=== PATIENT | male | born 1970 | race Caucasian/White ===

== ENCOUNTER 2016-12-16 11:24 | Day surgery (SDC) | payer OTHER ==
[~2016-12-16] VITALS: Ht 157.5 cm; Wt 81.2 kg
[~2016-12-16 11:24] MED LIST: AMLO2.5T PO; ASP325T PO; ATEN100T88 PO; CLPD75T PO; FENO135C PO; FENO45CA PO; ISM30TCR PO; ISM60TCR PO; LOSA100T16 PO; LOSA1TAB15 PO; NF-ESOM40C PO; POTA10CA43 PO; ROSU5TAB PO
[2016-12-16] MEDS ORDERED: AMLODIPINE (11:37)
[2016-12-16] MEDS ORDERED: ASPI-586 PO (11:37)
[2016-12-16] MEDS ORDERED: fentaNYL INJECTION 100 MCG/2 ML AMP IVP STA (11:56)
[2016-12-16] MEDS ORDERED: NS IV 1000 ML 1,000 ML IV ONE (11:56)
--- NOTE | 2016-12-16 12:01 | ED GI ---
General Chief Complaint: Abdominal/GI Problems Stated Complaint: UNABLE TO SWALLOW/UPPER ABD PAIN Nursing Triage Note: PT REPORTS HE HAS A HX OF A HIATAL HERNIA. AT APPROX 1900 LAST NIGHT HE WAS EATING PORK LOIN ET JALAPENOS ET HE CHOKED. HE HAS BEEN UNABLE TO SWALLOW ANYTHING SINCE THEN. Sepsis Screen: No Definite Risk Source of Information: Patient, Spouse Exam Limitations: No Limitations History of Present Illness Time Seen By Provider: 11:40 Initial Comments 46 yo male patient presents to the ED with c/o food stuck in his esophagus. Patient states he was eating pork and jalapenos last night when he felt the food stick in the lower esophagus. States he is usually able to get the food to pass through within an 1-2 hours. On this occasion he has been unable to do this. Unable to swallow his own secretions. Incident occurred last night at 1900. Has not had anything to eat or drink today. Timing/Duration: 12-24 Hours, Constant Severity/Quality: Sharp Location: Epigastric Radiation: Other (radiates up the esophagus) Activities at Onset: Other (eating) Modifying Factors: Worsens With Eating Allergies and Home Medications Allergies Coded Allergies: Penicillins (Verified Allergy, Unknown, 01/17/11) Home Medications (Reported) Aspirin 81 Mg Tablet.dr 81 MG PO DAILY (Reported) Atenolol 100 Mg Tablet 100 MG PO DAILY (Reported) Esomeprazole Mag Trihydrate 40 Mg Capsule.dr #30 40 MG PO DAILY (Reported) Fenofibrate 135 Mg Capsule.dr 135 MG PO DAILY (Reported) Losartan/Hydrochlorothiazide 1 Tab Tablet 1 TAB PO DAILY (Reported) Potassium Chloride 10 Meq Capsule.sa 10 MEQ PO DAILY (Reported) Review of Systems Constitutional: No diaphoresis, No fever, No malaise Respiratory: Denies Cough, Denies Shortness of Air Cardiovascular: No Symptoms Reported Gastrointestinal: See HPIDenies Abdomen Distended, Abdominal Pain ( epigastric pain)Denies Constipated, Denies Diarrhea, Difficulty SwallowingDenies Nausea, Poor Appetite Poor Fluid IntakeDenies Vomiting Genitourinary: No Symptoms Reported Musculoskeletal: no symptoms reported Skin: no symptoms reported Psychiatric/Neurological: No Symptoms Reported All Other Systems Reviewed Negative Unless Noted: Yes (Negative excepted noted.) Past Bojkxho-Dxqacd-Qecpfy Hx Patient Social History Alcohol Use: Denies Use Recreational Drug Use: No Smoking Status: Current Everyday Smoker Type Used: Cigarettes Recent Foreign Travel: No Contact w/Someone Who Travel: No Recent Infectious Disease Expo: No Recent Hopitalizations: No Surgeries HX Surgeries: Yes (HEART CATH X 3) Surgeries: Coronary Stent Respiratory Hx Respiratory Disorders: No Cardiovascular Hx Cardiac Disorders: Yes Cardiac Disorders: Heart Attack, High Cholesterol, Hypertension Neurological Hx Neurological Disorders: No Reproductive System Hx Reproductive Disorders: No Genitourinary Hx Genitourinary Disorders: No Gastrointestinal Hx Gastrointestinal Disorders: Yes Gastrointestinal Disorders: Hiatal Hernia Endocrine Hx Endocrine Disorders: No HEENT HX ENT Disorders: No Psychosocial Hx Psychiatric Problems: No Blood Transfusions Hx Blood Disorders: No Reviewed Nursing Assessment Reviewed/Agree w Nursing PMH: Yes Family Medical History Significant Family History: No Pertinent Family Hx Physical Exam Vital Signs VS - Last 72 Hours, by Label 12/16/16 11:30 Temp 97.9 Pulse 88 Resp 16 B/P 170/141 Capillary Refill : Less Than 3 Seconds General Appearance: WD/WN no apparent distress Respiratory: lungs clear normal breath sounds no respiratory distress Cardiovascular: regular rate, rhythm no murmur Gastrointestinal: normal bowel sounds soft no organomegalyNo distended, guarding (epigastric)No rebound, tenderness (epigastric) Extremities: normal inspection normal capillary refill Neurologic/Psychiatric: alert normal mood/affect oriented x 3 Skin: normal color warm/dry Progress/Results/Core Measures Results/Orders Lab Results Laboratory Tests Test 12/16/16 11:50 Range/Units Alanine Aminotransferase (ALT/SGPT) 46 0-55 U/L Albumin 4.6 H 3.2-4.5 G/DL Alkaline Phosphatase 68 40-136 U/L Anion Gap 15 H 5-14 MMOL/L Aspartate Amino Transf (AST/SGOT) 34 5-34 U/L BUN/Creatinine Ratio 23 Basophils # (Auto) 0.0 0.0-0.1 10^3/uL Basophils (%) (Auto) 0 0-10 % Blood Urea Nitrogen 19 H 7-18 MG/DL Calcium Level 9.3 8.5-10.1 MG/DL Carbon Dioxide Level 22 21-32 MMOL/L Chloride Level 104 98-107 MMOL/L Creatinine 0.84 0.60-1.30 MG/DL Eosinophils # (Auto) 0.1 0.0-0.3 10^3/uL Eosinophils (%) (Auto) 1 0-10 % Estimat Glomerular Filtration Rate > 60 Glucose Level 125 H 70-105 MG/DL Hematocrit 43 40-54 % Hemoglobin 15.5 13.3-17.7 G/DL Lipase 22 8-78 U/L Lymphocytes # (Auto) 2.0 1.0-4.0 X 10^3 Lymphocytes (%) (Auto) 24 12-44 % Mean Corpuscular Hemoglobin 29 25-34 PG Mean Corpuscular Hemoglobin Concent 36 32-36 G/DL Mean Corpuscular Volume 81 80-99 FL Mean Platelet Volume 10.5 H 7.4-10.4 FL Monocytes # (Auto) 0.7 0.0-1.0 X 10^3 Monocytes (%) (Auto) 8 0-12 % Neutrophils # (Auto) 5.5 1.8-7.8 X 10^3 Neutrophils (%) (Auto) 67 42-75 % Platelet Count 279 130-400 10^3/uL Potassium Level 4.2 3.6-5.0 MMOL/L Red Blood Count 5.33 4.35-5.85 10^6/uL Red Cell Distribution Width 14.5 10.0-14.5 % Sodium Level 141 135-145 MMOL/L Total Bilirubin 0.5 0.1-1.0 MG/DL Total Protein 8.2 6.4-8.2 G/DL White Blood Count 8.2 4.3-11.0 10^3/uL My Orders Orders-LETI NOLAN Saline Lock/Iv-Start (12/16/16 11:38) Cbc With Automated Diff (12/16/16 11:38) Comprehensive Metabolic Panel (12/16/16 11:38) Lipase (12/16/16 11:38) Chest Pa/Lat (2 View) (12/16/16 11:38) Fentanyl Injection (Sublimaze Injection (12/16/16 11:56) Ns Iv 1000 Ml (Sodium Chloride 0.9%) (12/16/16 11:56) Morphine Injection (Morphine Injection (12/16/16 12:46) Medications Given in ED Current Medications Medications Dose Ordered Sig/Ann Marie Route Start Time Stop Time Status Last Admin Dose Admin Sodium Chloride 1,000 ml @ 0 mls/hr Q0M ONCE IV 12/16/16 11:56 12/16/16 11:57 DC 12/16/16 12:11 1,000 MLS/HR Vital Signs/I&O Vital Sign - Last 12Hours 12/16/16 11:30 Temp 97.9 Pulse 88 Resp 16 B/P 170/141 Blood Pressure Mean: 151 Diagnostic Imaging Diagonstic Imaging: Xray Plain Films/CT/US/NM/MRI: chest Comments FINDINGS: The lungs are well-aerated. There are no infiltrates or masses. The heart is not enlarged. No hilar adenopathy. No pulmonary edema. No evidence of retrocardiac mass. IMPRESSION: Normal PA and lateral chest. Dictated on workstation # [id number] Reviewed: Reviewed by Me (radiology report reviewed by me) Departure Communication Time/Spoke to Admitting Phy: 12:[address] Sanchez accepts patient as an admit to endoscopy for EGD with possible foreign body removal. Progress Notes laboratory findings, diagnostic study findings, and plan for endoscopy admission discussed with the patient. Patient voices understanding and agrees with the treatment plan. Impression Impression: Primary Impression: Distal esophageal obstruction due to foreign body Disposition: ADMITTED INPATIENT Condition: Stable Decision to Admit Reason: Admit from ER (General) Decision to Admit/Date: Dec 16, 2016 Time/Decision to Admit Time: 12:44 Departure-Patient Inst. Referrals: [facility] (PCP/Family) Primary Care Physician LETI NOLAN Dec 16, 2016 12:01
[2016-12-16 12:02] LABS: BASOPHILS % (AUTO) 0 % (0-10); EOSINOPHILS # (AUTO) 0.1 10^3/uL (0.0-0.3); EOSINOPHILS % (AUTO) 1 % (0-10); LYMPHOCYTES % (AUTO) 24 % (12-44); MEAN CORPUSCULAR HEMOGLOBIN 29 PG (25-34); MEAN CORPUSCULAR HGB CONC 36 G/DL (32-36); MEAN CORPUSCULAR VOLUME 81 FL (80-99); MEAN PLATELET VOLUME 10.5 FL (7.4-10.4); MONOCYTES # (AUTO) 0.7 X 10^3 (0.0-1.0); MONOCYTES % (AUTO) 8 % (0-12); NEUTROPHILS # (AUTO) 5.5 X 10^3 (1.8-7.8); NEUTROPHILS % (AUTO) 67 % (42-75); PLATELET COUNT 279 10^3/uL (130-400); RED BLOOD COUNT 5.33 10^6/uL (4.35-5.85); RED CELL DISTRIBUTION WIDTH 14.5 % (10.0-14.5); WHITE BLOOD COUNT 8.2 10^3/uL (4.3-11.0)
--- NOTE | 2016-12-16 12:21 | Diagnostic Imaging Report ---
INDICATION: History of hiatal hernia with difficulty swallowing. Comparison with 01/17/2011. FINDINGS: The lungs are well-aerated. There are no infiltrates or masses. The heart is not enlarged. No hilar adenopathy. No pulmonary edema. No evidence of retrocardiac mass. IMPRESSION: Normal PA and lateral chest. Dictated by: Dictated on workstation # [id number]
[2016-12-16 12:25] LABS: ALANINE AMINOTRANSFERASE 46 U/L (0-55); ALBUMIN 4.6 G/DL (3.2-4.5); ANION GAP 15 MMOL/L (5-14); ASPARTATE AMINO TRANSFERASE 34 U/L (5-34); BILIRUBIN,TOTAL 0.5 MG/DL (0.1-1.0); BLOOD UREA NITROGEN 19 MG/DL (7-18); BUN/CREATININE RATIO 23; CALCIUM 9.3 MG/DL (8.5-10.1); CARBON DIOXIDE 22 MMOL/L (21-32); CHLORIDE 104 MMOL/L (98-107); CREATININE SERUM 0.84 MG/DL (0.60-1.30); GFR ESTIMATED > 60; GLUCOSE 125 MG/DL (70-105); LIPASE 22 U/L (8-78); POTASSIUM 4.2 MMOL/L (3.6-5.0); SODIUM 141 MMOL/L (135-145); TOTAL PROTEIN 8.2 G/DL (6.4-8.2)
[2016-12-16] MEDS ORDERED: morphine INJ 10 MG/ML 1ML (SYR OR VIAL) IVP STA (12:46)
[2016-12-16 13:10] VITALS: BP 153/113
[2016-12-16] MEDS ORDERED: NALOXONE 0.4 MG/ML 1 ML (NARCAN) VIAL IVP PRN (13:15)
[2016-12-16] MEDS ORDERED: FLUMAZENIL (ROMAZICON) 0.1 MG/ML 5 ML VIAL INJ PRN (13:15)
[2016-12-16] MEDS ORDERED: NS IV 500 ML 500 ML IV ONE (13:15)
--- NOTE | 2016-12-16 14:08 | Conscious Sedation/ASA ---
Conscious Sedation Pre-Proced Time Reviewed: 13:30 ASA Class: 2 Airway Mallampati Classification: ([place] appropriate class) I. II. III, IV Lungs Heart ASA score ASA 1: a normal healthy patient ASA 2: a patient with a mild systemic disease (mid diabetes, controlled hypertension, obesity ASA 3: a patient with a severe systemic disease that limits activity (angina , COPD, prior Myocardial infarction) ASA 4: a patient with an incapacitating disease that is a constant threat to life (CHF, renal failure) ASA 5: a moribund patient not expected to survive 24 hrs. (ruptured aneurysm) ASA 6: a declared brain patient whose organs are being harvested. For emergent operations, add the letter E after the classification Grade 3 Sedation Plan: Analgesia, Amnesia, Plan communicated to team members, Discussed options with patient/fam, Discussed risks with patient/fam Note The patient is an appropriate candidate to undergo the planned procedure, sedation, and anesthesia. The patient immediately re-assessed prior to indication. PATIENCE SARGENT MD Dec 16, 2016 2:08 pm
--- NOTE | 2016-12-16 14:09 | Progress Note-Pre Operative ---
Pre-Operative Progress Note H&P Reviewed The H&P was reviewed, patient examined and no changes noted. Date H&P Reviewed: Dec 16, 2016 Time H&P Reviewed: 13:30 Pre-Operative Diagnosis: dysphagia with esophageal foreign body PATIENCE SARGENT MD Dec 16, 2016 2:09 pm
[2016-12-16] MEDS ORDERED: MIDAZOLAM 2 MG/2 ML (VERSED) VIAL ONE ×4 (14:29→14:30)
[2016-12-16] MEDS ORDERED: fentaNYL INJECTION 100 MCG/2 ML AMP ONE ×2 (14:29)
[2016-12-16] MEDS ORDERED: LIDOCAINE JELLY 2% (XYLOCAINE) 5 ML TUBE ONE (14:29)
[2016-12-16] MEDS: HURRICAINE EXT TUBE (BENZOCAINE) XX PRN ×2 (14:30→14:35)
[2016-12-16] MEDS ORDERED: HURRICAINE EXT TUBE (BENZOCAINE) ONE (14:30)
[2016-12-16] MEDS: fentaNYL INJECTION 100 MCG/2 ML AMP IVP PRN ×3 (14:30→15:03)
[2016-12-16] MEDS ORDERED: NS IV 500 ML 500 ML ONE (14:47)
[2016-12-16] MEDS: MIDAZOLAM 2 MG/2 ML (VERSED) VIAL IVP PRN ×4 (14:55→15:02)
[2016-12-16] MEDS ORDERED: NS IV 500 ML 500 ML IV SCH (15:03)
--- NOTE | 2016-12-16 15:16 | Progress Note-Post Operative ---
Post-Operative Progess Note Pre-Operative Diagnosis dysphagia with esophageal foreign body Post-Operative Diagnosis distal esophageal foreign body, severe reflux esophagitis(class C-D), distal esophageal stricture, small HH(2cm), moderate gastritis Post-Op Procedure Note Date of Procedure: Dec 16, 2016 Name of Procedure: EGD with bx and dilatation. Anesthesia Type CS Estimated blood loss (mL): minimal Specimen(s) collected GE jxn, antrum PATIENCE SARGENT MD Dec 16, 2016 15:16
[2016-12-16] MEDS ORDERED: SUCR1TAB36 PO (15:17)
[2016-12-16] MEDS ORDERED: PANT40TA2 PO (15:17)
--- NOTE | 2016-12-16 15:18 | Discharge Inst-Surgical ---
D/C Lap Instructions-KIDO New, Converted, or Re-Newed RX: RX on Chart Follow Up PRN Activity as tolerated clear liquid diet next 2 days then advance as tolerated Avoid Alcohol, Caffeine, Spicy [place] and Acid foods. Drink 64 fluid oz or more of fluids per day. Symptoms to Report: Fever over 101 degree F, Nausea/Vomiting If any problems/questions: Contact your physician or go to Emergency Room PATIENCE SARGENT MD Dec 16, 2016 15:18
[2016-12-16 15:35] VITALS: BP 160/99
[2016-12-16 15:58] VITALS: BP 153/113
[2016-12-16 16:12] VITALS: BP 133/90
[2016-12-16 16:13] VITALS: BP 133/90
--- NOTE | 2016-12-17 10:41 | HISTORY AND PHYSICAL ---
DATE OF ADMISSION: 12/16/2016 ATTENDING PRIMARY CARE PHYSICIAN: [facility]. Mr. Kevin Hansen is a 46-year-old male who reports that he was grilling port and he reports after taking in a food bolus noticed sudden onset of substernal pressure sensation. He tried to take in more food as well as liquids; however, this worsened it and he did have several episodes of regurgitation. He then reports overnight he was unable to swallow saliva. He does have a history of gastroesophageal reflux disease and is currently taking a Nexium. PAST MEDICAL HISTORY: 1. Hypertension. 2. Hypercholesterolemia. 3. History of myocardial infarction. 4. Gastroesophageal reflux disease. 5. Hypertriglyceridemia. PAST SURGERIES: Cardiac catheterization and stent placement x3. ALLERGIES: PENICILLIN MEDICATIONS: 1. Aspirin 81 mg daily. 2. Atenolol 100 mg daily. 3. Nexium 40 mg daily. 4. Fenofibrate 135 mg daily. 5. Losartan/hydrochlorothiazide daily. 6. Potassium 10 mEq daily. SOCIAL HISTORY: Positive smoke 20 pack-years. Social alcohol. FAMILY HISTORY: Noncontributory. VITAL SIGNS: Stable. Temperature 97.9, blood pressure 170/141, pulse 80, respirations 16. REVIEW OF SYSTEMS: This is a well-nourished male, guarded secondary to dysphasia. He is not experiencing shortness of breath or difficulty breathing. No chest pain, palpitations, diaphoresis. Intermittent episodes of globus sensation and inability to swallow, as well as substernal pressure sensation, as well as regurgitation. No hematemesis, no coffee-ground emesis. No diarrhea, constipation. No red blood per rectum. No dark tarry stools. No fever, chills, no recent inadvertent weight loss. PHYSICAL EXAMINATION: CHEST: Clear. HEART: Regular. EXTREMITIES: No lower extremity edema. Negative Homans sign. HEENT: No scleral icterus. No cervical lymphadenopathy. ABDOMEN: Soft, nondistended. There is mild discomfort in the epigastric region upon deep palpation. ASSESSMENT AND PLAN: 46-year-old male with history of gastroesophageal reflux disease and dysphagia most likely secondary to esophageal foreign body. We will proceed with EGD, biopsies, as well as removal of foreign body. Job ID: [id number] Dictated Date: 12/16/2016 14:16:52 Mercerizing Range Feeder Date: 12/17/2016 10:35:13/archana
--- NOTE | 2016-12-18 14:23 | OPERATIVE REPORT ---
PROCEDURE PHYSICIAN: PATIENCE SARGENT DATE OF PROCEDURE: 12/16/2016 ATTENDING FULFILLMENT MAIL CLERK: [facility]. PREOPERATIVE DIAGNOSIS: Esophageal foreign body and dysphagia. POSTOPERATIVE DIAGNOSES: 1. Esophageal foreign body distal esophageal stricture. 2. Severe reflux esophagitis, class C to D. 3. Small hiatal hernia, approximately 2 cm in size. 4. Moderate gastritis. PROCEDURE: EGD and removal of a foreign body, biopsy and dilatation. SURGEON: Dr. Sargent. ANESTHESIA: Conscious sedation. ESTIMATED BLOOD LOSS: Minimal. FINDINGS: 1. Distal esophageal foreign body which appeared to be a pork from the night previous. There was also a severe reflux esophagitis, between class C and D. 2. Distal esophageal stricture. 3. Hiatal hernia, approximately 2 cm in size. 4. Moderate gastritis. 5. There were no gastric duodenal ulcers. DISPOSITION: The patient tolerated the procedure well. BRIEF HISTORY: Mr. Kevin Hansen is a 46-year-old male who states that he was eating grilled pork last night and felt a sudden onset of substernal pressure sensation. He tried to eat more and drink liquids; however, this would exacerbate his symptoms and he would have episodes of regurgitation. He states that all night he was unable to swallow his own saliva. He reports that he has had milder episodes of this before in the past that would pass on its own after a few hours. He does have a history of gastroesophageal reflux disease. PROCEDURE: The patient was brought to the endoscopy suite, laid in the left lateral decubitus position. After adequate IV pain and sedative medications and conscious sedation anesthesia, a mouth piece was applied. The endoscope was placed in the mouth, visualizing the pharynx and hypopharyngeal region. Vocal cords, epiglottis and vallecula identified and appeared to be normal. The endoscope was then gently intubated into the esophageal opening and the esophagus insufflated. The endoscope was then advanced through the first, second, and 3rd portions esophagus at the distal esophagus was a food bolus which appeared to be pork. This was pushed through without any resistance into the stomach. A significant severe reflux esophagitis, between class C and D was identified with a distal esophageal stricture as well. Biopsy was taken with forceps of visualization of good hemostasis. The endoscope was then gently advanced to the stomach and endoscope retroflexed visualizing a small hiatal hernia, approximately 2 cm in size. There was a moderate severity gastritis. A biopsy was taken of the stomach antrum, with visualization of good hemostasis. The endoscope was then advanced through the pylorus and first and second portions of duodenum which appeared normal. We then decided to proceed with dilatation esophageal stricture. A CRE fixed guidewire balloon was then placed under direct visualization the stomach and pulled back to the area of the stricture. The balloon was then dilated to 3 atmospheres of pressure or 18 mm with mild resistance. We then proceeded to 4.5 atmospheres of pressure or 19 mm with moderate resistance. The patient did show discomfort consistent with a successful dilatation. We left the balloon in place for approximately 60 seconds. The balloon was then desufflated and removed. Good hemostasis was observed. The endoscope was slowly withdrawn while taking a second look and suctioning residual air with no additional findings. The patient tolerated procedure well. For his reflux esophagitis, hiatal hernia, stricture, as well as gastritis, we will recommend the necessary lifestyle and diet accommodation including smoking cessation as well as avoidance of caffeinated beverages, spicy, greasy and acidic foods. He also needs to take something stronger than Nexium [id number] and we will start him on Protonix 40 mg daily, as well as Carafate 1 gram q.i.d. for the next 2 weeks then on a p.r.n. basis. We will also recommend a clear liquid diet for the next 48 hours and slowly advance as tolerated. Job ID: [id number] Dictated Date: 12/16/2016 15:12:59 Director [employer] Date: 12/18/2016 14:14:18 / archana
== END 2016-12-16 16:19 | disposition home or self-care (01) ==
LOC: EDUNIT# 11:24 → ER 11:26 → SDC 12:51
PROVIDERS: ATTEND Surgery Pediatric Surgery
DX: T18.128A Food in esophagus causing other injury, initial encounter (principal); K22.2 Esophageal obstruction; K21.0 Gastro-esophageal reflux disease with esophagitis; K44.9 Diaphragmatic hernia without obstruction or gangrene; K29.70 Gastritis, unspecified, without bleeding
CPT/HCPCS: 36415; 71020; 80053; 83690; 85025; 88305; 96361; 96374

== ENCOUNTER 2017-07-04 09:10 | Day surgery (SDC) | payer OTHER ==
[2017-07-04] VITALS (10 sets, daily range): BP systolic 116–133; BP diastolic 62–94
[~2017-07-04] VITALS: Ht 157.5 cm; Wt 81.6 kg
[~2017-07-04 09:10] MED LIST changes: +AMLODIPINE; +ASPI-586 PO; +PANT40TA2 PO; +SUCR1TAB36 PO
[2017-07-04] MEDS ORDERED: HEParin (CATH LAB) 2,000 ML IV ONE (09:13)
[2017-07-04] MEDS ORDERED: NS IV 1000 ML 1,000 ML ONE (09:13)
--- OUTSIDE RECORDS SUMMARY | 2017-07-04 09:17 | XMS REPORT ---
Author Author NICOLE PEOPLES Organization [employer] Address Unknown Phone Unavailable Care Team Providers Care Brick Tender Name Role Phone NICOLE PEOPLES CP Unavailable Allergies No Known Allergies Problems Problem Type Condition Code Onset Dates Condition Status Problem Pulpitis 522.0 Active Problem Acute tonsillitis 463 Active Problem Allergic rhinitis due to pollen 477.0 Active Problem Hyperlipemia 272.4 Active Problem Unspecified follow-up examination V67.9 Active Problem CAD (coronary artery disease) 414.00 Active Problem Encounter for long-term (current) use of other medications V58.69 Active Problem Acute pharyngitis 462 Active Problem Depressive disorder, not elsewhere classified 311 Active Problem Periapical abscess without sinus 522.5 Active Problem Unspecified disorder of the teeth and supporting structures 525.9 Active Problem Unspecified myalgia and myositis 729.1 Active Problem Actinic keratosis 702.0 Active Problem Unspecified hypertrophic and atrophic condition of skin 701.9 Active Medications Medication Code System Code Instructions Start Date End Date Status Dosage Atenolol [facility] [address]-65 100 MG Orally Once a day December 29, 2014 1 tablet Results No Known Results Summary Purpose [employer]Clinical[employer] Submission
--- OUTSIDE RECORDS SUMMARY | 2017-07-04 09:17 | XMS REPORT ---
Author Author NICOLE PEOPLES Organization [employer] Address Unknown Phone Unavailable Care Team Providers Care [facility] Manager Name Role Phone NICOLE PEOPLES CP Unavailable Allergies No Known Allergies Problems Problem Type Condition ICD-9 Code Onset Dates Condition Status Problem Pulpitis [...] Instructions Start Date End Date Status Dosage Langzaar [facility] [address]-60 100-25 MG Orally Once a day December 29, 2014 1 tablet Results No Known Results Summary Purpose [employer]Clinical[employer] Submission
--- OUTSIDE RECORDS SUMMARY | 2017-07-04 09:17 | XMS REPORT ---
Author Author FRANCOISE NUNEZ [employer] Address Unknown Phone Unavailable Care Team Providers Care Field Cane Scale Clerk Name Role Phone FRANCOISE NUNEZ Unavailable Allergies No Known Allergies Problems Problem Type Condition Code Onset Dates Condition Status Problem Hyperlipidemia, unspecified E78.5 Active Problem Nicotine dependence, cigarettes, uncomplicated F17.210 Active Problem Atherosclerotic heart disease of [place] coronary artery without angina pectoris I25.10 Active Medications Medication Code System Code Instructions Start Date End Date Status Dosage Langzapedro [facility] [address]-63 100-25 MG Orally Once a day December 29, 2014 1 tablet Results No Known Results Summary Purpose [employer]ClinicalWorks Submission
--- OUTSIDE RECORDS SUMMARY | 2017-07-04 09:17 | XMS REPORT ---
Author Author JHONNY RIVERA [employer] Address Unknown Phone Unavailable Care Team Providers Care Over Hauler Helper Name Role Phone JHONNY RIVERA CP Unavailable Allergies, Adverse Reactions, Alerts Substance Reaction Event Type Penicillin G Sodium Info Not Available Drug Allergy Problems Problem Type Condition Code Onset Dates Condition Status Problem Hyperlipidemia, unspecified E78.5 Active Problem Nicotine dependence, cigarettes, uncomplicated F17.210 Active Problem Atherosclerotic heart disease of [place] coronary artery without angina pectoris I25.10 Active Assessment Essential hypertension I10 Active Assessment Hyperlipidemia, unspecified hyperlipidemia type E78.5 Active Assessment Aortic aneurysm without rupture, unspecified portion of aorta I71.9 Active Assessment Coronary artery disease involving [place] heart without angina pectoris, unspecified vessel or lesion type I25.10 Active Medications Medication Code System Code Instructions Start Date End Date Status Dosage Flonase [facility] [address]-00 50 MCG/ACT Nasally Once a day Jul 01, 2015 1 spray in each nostril Norvasc [facility] [address]-40 5 MG Orally 2 times a day December 29, 2014 take 1 tablet Niacin [facility] [address]-39 500 MG Orally Once a day December 29, 2014 1 Tablet by Oral route 2 times per day Potassium NDC 0 595mg Orally Once a day 1 tablet IBU NDC 0 800 MG Orally Three times a day April 01, 2015 1 tablet Hyzaar [facility] 83623730121 100-25 MG Orally Once a day 1 tablet Nexium [facility] [address]-19 20 mg January 13, 2015 1 capsule by Oral route 1 time per day Aspirin [facility] [address]-95 81 mg Jul 22, 2013 chew 1 tablet (81 mg ) by oral route once daily Gemfibrozil [facility] [address]-78 600 MG Orally Twice a day December 29, 2014 1 tablet Atenolol [facility] 07422399423 100 MG Orally Once a day 1 tablet Procedures Procedure Coding System Code Date Office Visit, Est Pt., Level 4 CPT-4 74918 Jun 17, 2016 Vital Signs Date/Time: Jun 17, 2016 Cardiac Monitoring Heart Rate 72 bpm Weight 186 lbs Height 62 in BMI 34.02 Index Blood Pressure Diastolic 88 mmHg Blood Pressure Systolic 142 mmHg Results No Known Results Summary Purpose eClinicalWorks Submission
--- OUTSIDE RECORDS SUMMARY | 2017-07-04 09:18 | XMS REPORT ---
Author Author FRANCOISE NUNEZ [employer] Address Unknown Phone Unavailable Care Team Providers Care Province Archivist Name Role Phone FRANCOISE NUNEZ Unavailable Allergies, Adverse Reactions, Alerts Substance Reaction Event Type Penicillin G Sodium Info Not Available Drug Allergy Problems Problem Type Condition Code Onset Dates Condition Status Problem Hyperlipidemia, unspecified E78.5 Active Problem Nicotine dependence, cigarettes, uncomplicated F17.210 Active Problem Atherosclerotic heart disease of [place] coronary artery without angina pectoris I25.10 Active Assessment Hyperlipidemia, unspecified E78.5 Active Assessment Essential hypertension I10 Active Medications Medication Code System Code Instructions Start Date End Date Status Dosage Nexium [facility] [address]-60 40 mg January 13, 2015 1 capsule by Oral route 1 time per day Aspirin [facility] [address]-80 81 mg Jul 22, 2013 chew 1 tablet (81 mg ) by oral route once daily Norvasc [facility] [address]-48 5 MG Orally 2 times a day December 29, 2014 take 1 tablet Potassium NDC 0 595mg Orally Once a day 1 tablet Gemfibrozil [facility] [address]-38 600 MG Orally Twice a day December 29, 2014 1 tablet Atenolol [facility] [address]-79 100 MG Orally Once a day December 29, 2014 1 tablet Hyzaar [facility] 25808433912 100-25 MG Orally Once a day 1 tablet Niacin [facility] [address]-18 500 MG Orally Once a day December 29, 2014 1 Tablet by Oral route 2 times per day Procedures Procedure Coding System Code Date Office Visit, Est Pt., Level 3 CPT-4 40001 May 09, 2016 Vital Signs Date/Time: May 09, 2016 Cardiac Monitoring Heart Rate 70 bpm Weight 184.1 lbs Height 62 in Blood Pressure Diastolic 78 mmHg Blood Pressure Systolic 118 mmHg Results No Known Results Summary Purpose eClinicalWorks Submission
--- OUTSIDE RECORDS SUMMARY | 2017-07-04 09:18 | XMS REPORT ---
Author Author JHONNY RIVERA eClinicalWorks Address Unknown Phone Unavailable Care Team Providers Care Last Marker Name Role Phone JHONNY RIVERA CP Unavailable Allergies, Adverse Reactions, Alerts Substance Reaction Event Type Penicillin G Sodium Info Not Available Drug Allergy Problems Problem Type Condition Code Onset Dates Condition Status Assessment Hyperlipidemia, unspecified hyperlipidemia type E78.5 Active Problem Nicotine dependence, cigarettes, uncomplicated F17.210 Active Assessment Aortic aneurysm without rupture, unspecified portion of aorta I71.9 Active Problem Coronary artery disease without angina pectoris, unspecified vessel or lesion type, unspecified whether [place] or transplanted heart I25.10 Active Problem Hyperlipidemia, unspecified hyperlipidemia type E78.5 Active Problem Aortic aneurysm without rupture, unspecified portion of aorta I71.9 Active Problem Atherosclerotic heart disease of [place] coronary artery without angina pectoris I25.10 Active Problem Hyperlipidemia, unspecified E78.5 Active Problem Secondary hypertension I15.9 Active Problem Coronary artery disease involving [place] coronary artery of [place] heart without angina pectoris I25.10 Active Assessment Coronary artery disease involving [place] coronary artery of [place] heart without angina pectoris I25.10 Active Assessment Tobacco abuse Z72.0 Active Assessment Secondary hypertension I15.9 Active Medications Medication Code System Code Instructions Start Date End Date Status Dosage Atenolol [facility] 32989608845 100 MG Orally Once a day 1 tablet Nexium [facility] [address]-28 20 mg January 13, 2015 1 capsule by Oral route 1 time per day Flonase [facility] 72274620148 50 MCG/ACT Nasally Once a day 1 spray in each nostril Gemfibrozil [facility] 34501423926 600 MG Orally Twice a day 1 tablet Niacin [facility] [address]-46 500 MG Orally Once a day December 29, 2014 1 Tablet by Oral route 2 times per day Potassium NDC 0 595mg Orally Once a day 1 tablet IBU NDC 0 800 MG Orally Three times a day April 01, 2015 1 tablet Norvasc [facility] [address]-05 5 MG Orally 2 times a day December 29, 2014 take 1 tablet Losartan Potassium-HCTZ [facility] 45488658807 100-25 MG TAKE ONE (1) TABLET BY MOUTH ONCE DAILY. Aspirin [facility] [address]-79 81 mg Jul 22, 2013 chew 1 tablet (81 mg ) by oral route once daily Hyzaar [facility] 42877126796 100-25 MG Orally Once a day 1 tablet Procedures Procedure Coding System Code Date Office Visit, Est Pt., Level 4 CPT-4 36229 Aug 19, 2016 Vital Signs Date/Time: Aug 19, 2016 Cardiac Monitoring Heart Rate 74 bpm Weight 185 lbs Height 62 in BMI 33.83 Index Blood Pressure Diastolic 82 mmHg Blood Pressure Systolic 128 mmHg Results No Known Results Summary Purpose eClinicalWorks Submission
--- OUTSIDE RECORDS SUMMARY | 2017-07-04 09:18 | XMS REPORT ---
Author Author FRANCOISE NUNEZ [facility] [place] eClinicalWorks Address Unknown Phone Unavailable Care Team Providers Care Oil Derrick Operator Name Role Phone FRANCOISE NUNEZ CP Unavailable Allergies No Known Allergies Problems [...] Start Date End Date Status Dosage Flonase [facility] [address]-70 50 MCG/ACT Nasally Once a day Jul 01, 2015 1 spray in each nostril Results No Known Results Summary Purpose eClinicalWorks Submission
--- OUTSIDE RECORDS SUMMARY | 2017-07-04 09:18 | XMS REPORT ---
Author Author JASMINE STEPHENS [facility] Address [address] [place] [address] Care Team Providers Care Peach Grower Name Role Phone JASMINE STEPHENS Unavailable PROBLEMS Type Condition ICD9-CM Code QDP52-RY Code Onset Dates Condition Status SNOMED Code Problem Hyperlipidemia, unspecified hyperlipidemia type E78.5 Active 10050252 Problem Penile lesion N48.9 Active 033617284 Problem Phimosis N47.1 Active 606281644 Problem Simple chronic bronchitis J41.0 Active 50771375 Problem Shortness of breath R06.02 Active 546424616 Problem Hx of hiatal hernia Z87.19 Active 876493892 Problem Difficulty swallowing liquids R13.10 Active 875276829 Problem Chronic obstructive pulmonary disease with acute exacerbation J44.1 Active 998374466 Problem Type 2 diabetes mellitus with hyperglycemia, without long-term current use of insulin E11.65 Active 73925484 Problem Atherosclerotic heart disease of [place] coronary artery without angina pectoris I25.10 Active 604128632890072 Problem Aortic aneurysm without rupture, unspecified portion of aorta I71.9 Active 80586995 Problem Secondary hypertension I15.9 Active 73957887 Problem Nicotine dependence, cigarettes, uncomplicated F17.210 Active 159953992 Problem Coronary artery disease without angina pectoris, unspecified vessel or lesion type, unspecified whether [place] or transplanted heart I25.10 Active 916901232 Problem Hyperlipidemia, unspecified E78.5 Active 43227307 Problem Coronary artery disease involving [place] coronary artery of [place] heart without angina pectoris I25.10 Active 2195198110898 ALLERGIES Substance Reaction Event Type Date Status Penicillin G Sodium hives Drug Allergy Sep, Active SOCIAL HISTORY No smoking Hx information available PLAN OF CARE Activity Details Follow Up 1 Week with PCP Reason:if s/s do not improve VITAL SIGNS Height 62 in 2016-10-18 Weight 179.8 lbs 2016-10-18 Temperature 98.0 degrees Fahrenheit 2016-10-18 Heart Rate 86 bpm 2016-10-18 Respiratory Rate 18 2016-10-18 BMI 32.88 kg/m2 2016-10-18 Blood pressure systolic 100 mmHg 2016-10-18 Blood pressure diastolic 68 mmHg 2016-10-18 MEDICATIONS Medication Instructions Dosage Frequency Start Date End Date Duration Status Nexium 20 mg 1 capsule by Oral route 1 time per day Dec, Active Potassium 595mg Orally Once a day 1 tablet 24h Active Hyzaar 100-25 MG Orally Once a day 1 tablet 24h Active Gemfibrozil 600 MG Orally Twice a day 1 tablet 12h Active Atenolol 100 MG Orally Once a day 1 tablet 24h Active Niacin 500 MG Orally Once a day 1 Tablet by Oral route 2 times per day 24h Dec, Active IBU 800 MG Orally Three times a day 1 tablet 8h 10 Mar, 2015 Active Aspirin 81 mg chew 1 tablet (81 mg) by oral route once daily Jun, Active Norvasc 5 MG Orally 2 times a day take 1 tablet 12h Dec, Active Zofran 8 MG Orally every 8 hours, as needed for nausea 1 tablet Sep, 07 days Active RESULTS No Results PROCEDURES Procedure Date Ordered Related Diagnosis Body Site Office Visit, Est Pt., Level 3 Oct 18, 2016 IMMUNIZATIONS No Known Immunizations
--- OUTSIDE RECORDS SUMMARY | 2017-07-04 09:18 | XMS REPORT ---
Author Author NICOLE PEOPLES [facility] Address [address] [place] [address] Care Team Providers Care Systems Test Analyst Name Role Phone NICOLE PEOPLES Unavailable PROBLEMS Type Condition ICD9-CM Code IHZ52-JF Code Onset Dates Condition Status SNOMED Code Problem Hyperlipidemia, unspecified E78.5 Active 21727645 Problem Coronary artery disease involving [place] coronary artery of [place] heart without angina pectoris I25.10 Active 0456245290513 Problem Atherosclerotic heart disease of [place] coronary artery without angina pectoris I25.10 Active 709657881263183 Assessment Secondary hypertension I15.9 Sep, Active 61909927 Problem Nicotine dependence, cigarettes, uncomplicated F17.210 Active 110450012 Problem Penile lesion N48.9 Active 452497281 Problem Phimosis N47.1 Active 240728368 Problem Hyperlipidemia, unspecified hyperlipidemia type E78.5 Active 69717958 Problem Secondary hypertension I15.9 Active 50983878 Problem Aortic aneurysm without rupture, unspecified portion of aorta I71.9 Active 31360649 Problem Coronary artery disease without angina pectoris, unspecified vessel or lesion type, unspecified whether [place] or transplanted heart I25.10 Active 524957440 ALLERGIES Substance Reaction Event Type Date Status Penicillin G Sodium hives Drug Allergy Sep, Active SOCIAL HISTORY No smoking Hx information available PLAN OF CARE VITAL SIGNS Height 62 in 2016-09-22 Weight 184.6 lbs 2016-09-22 Heart Rate 80 bpm 2016-09-22 Respiratory Rate 18 2016-09-22 BMI 33.76 kg/m2 2016-09-22 Blood pressure systolic 110 mmHg 2016-09-22 Blood pressure diastolic 72 mmHg 2016-09-22 MEDICATIONS Medication Instructions Dosage Frequency Start Date End Date Duration Status Atenolol 100 MG Orally Once a day 1 tablet 24h Active Niacin 500 MG Orally Once a day 1 Tablet by Oral route 2 times per day 24h Dec, Active Potassium 595mg Orally Once a day 1 tablet 24h Active Gemfibrozil 600 MG Orally Twice a day 1 tablet 12h Active Aspirin 81 mg chew 1 tablet (81 mg) by oral route once daily Jun, Active Hyzaar 100-25 MG Orally Once a day 1 tablet 24h Active Nexium 20 mg 1 capsule by Oral route 1 time per day Dec, Active Norvasc 5 MG Orally 2 times a day take 1 tablet 12h 09 Dec, 2014 Active IBU 800 MG Orally Three times a day 1 tablet 8h 10 Mar, 2015 Active RESULTS No Results PROCEDURES Procedure Date Ordered Related Diagnosis Body Site Office Visit, Est Pt., Level 3 Sep 22, 2016 IMMUNIZATIONS No Known Immunizations
--- OUTSIDE RECORDS SUMMARY | 2017-07-04 09:18 | XMS REPORT ---
Author Author NICOLE PEOPLES Organization eClinicalWorks Address Unknown Phone Unavailable Care Team Providers Care Field Sales Specialist Name Role Phone NICOLE PEOPLES CP Unavailable [...] Langzaar [facility] [address]-18 100-25 MG Orally Once a day December 29, 2014 1 tablet Results No Known Results Summary Purpose eClinicalWorks Submission
--- OUTSIDE RECORDS SUMMARY | 2017-07-04 09:18 | XMS REPORT ---
Author FRANCOISE Santa eClinicalWorks Address Unknown Phone Unavailable Care Team Providers Care Pomology Teacher Name Role Phone FRANCOISE NUNEZ Unavailable Allergies, Adverse Reactions, Alerts Substance Reaction Event Type Penicillin G Sodium Info Not Available Drug Allergy Problems Problem Type Condition Code Onset Dates Condition Status Assessment Otalgia of left ear H92.02 Active Problem Hyperlipidemia, unspecified E78.5 Active Problem Nicotine dependence, cigarettes, uncomplicated F17.210 Active Problem Atherosclerotic heart disease of [place] coronary artery without angina pectoris I25.10 Active Assessment Hyperlipidemia, unspecified E78.5 Active Assessment Nicotine dependence, cigarettes, uncomplicated F17.210 Active Assessment Essential hypertension I10 Active Assessment Atherosclerotic heart disease of [place] coronary artery without angina pectoris I25.10 Active Medications Medication Code System Code Instructions Start Date End Date Status Dosage Atenolol [facility] [address]-29 100 MG Orally Once a day December 29, 2014 1 tablet Norvasc [facility] [address]-22 5 MG Orally 2 times a day December 29, 2014 take 1 tablet Gemfibrozil [facility] [address]-81 600 MG Orally daily December 29, 2014 1 tablet by Oral route 2 times per day Niacin [facility] [address]-44 500 MG Orally Once a day December 29, 2014 1 Tablet by Oral route 2 times per day Nexium [facility] [address]-77 40 mg January 13, 2015 1 capsule by Oral route 1 time per day Hyzaar [facility] [address]-21 100-25 MG Orally Once a day December 29, 2014 1 tablet Potassium NDC 0 595mg Orally Once a day 1 tablet Aspirin [facility] [address]-40 81 mg Jul 22, 2013 chew 1 tablet (81 mg ) by oral route once daily Procedures Procedure Coding System Code Date COMPREHEN METABOLIC PANEL CPT-4 43370 Nov 11, 2015 ASSAY THYROID STIM HORMONE CPT-4 58808 Nov 11, 2015 COMPLETE CBC W/AUTO DIFF WBC CPT-4 42335 Nov 11, 2015 Office Visit, Est Pt., Level 3 CPT-4 07554 Nov 11, 2015 LIPID PANEL CPT-4 63924 Nov 11, 2015 TYMPANOMETRY CPT-4 29095 Nov 11, 2015 VENIPUNCT, ROUTINE* CPT-4 36638 Nov 11, 2015 Vital Signs Date/Time: Nov 11, 2015 Temperature 97.8 F Weight 187.1 lbs Height 62 in BMI 34.22 Index Blood Pressure Diastolic 86 mmHg Blood Pressure Systolic 136 mmHg Cardiac Monitoring Heart Rate 70 bpm Results Name Result Date Reference Range Unit Abnormality Flag ROUTINE VENIPUNCTURE Summary Purpose eClinicalWorks Submission
--- OUTSIDE RECORDS SUMMARY | 2017-07-04 09:18 | XMS REPORT ---
Author Author INDIGO PRICE [facility] eClinicalWorks Address Unknown Phone Unavailable Care Team Providers Care Utilization Supervisor Name Role Phone INDIGO PRICE CP Unavailable Allergies, Adverse Reactions, Alerts Substance [...] 729.1 Active Problem Actinic keratosis 702.0 Active Assessment Otitis media, unspecified, left ear H66.92 Active Problem Unspecified hypertrophic and atrophic condition of skin 701.9 Active Medications Medication Code System Code Instructions Start Date End Date Status Dosage Hyzaar [facility] [address]-53 100-25 MG Orally Once a day December 29, 2014 1 tablet Gemfibrozil [facility] [address]-36 600 MG Orally daily December 29, 2014 1 tablet by Oral route 2 times per day Niacin [facility] [address]-59 500 MG Orally Once a day December 29, 2014 1 Tablet by Oral route 2 times per day Atenolol [facility] [address]-00 100 MG Orally Once a day December 29, 2014 1 tablet Norvasc [facility] [address]-84 5 MG Orally 2 times a day December 29, 2014 take 1 tablet Nexium [facility] [address]-23 40 mg January 13, 2015 1 capsule by Oral route 1 time per day Aspirin [facility] [address]-43 81 mg Jul 22, 2013 chew 1 tablet (81 mg ) by oral route once daily Potassium NDC 0 595mg Orally Once a day 1 tablet Keflex NDC [address]-27 500 MG Orally Twice a day Oct 27, 2015 Nov 03, 2015 1 capsule Procedures Procedure Coding System Code Date Office Visit, Est Pt., Level 3 CPT-4 10155 Oct 27, 2015 MEASURE BLOOD OXYGEN LEVEL CPT-4 70811 Oct 27, 2015 Vital Signs Date/Time: Oct 27, 2015 Temperature 96.9 F Weight 186.0 lbs Height 62 in Oximetry 96 % Blood Pressure Diastolic 88 mmHg Blood Pressure Systolic 138 mmHg Cardiac Monitoring Heart Rate 77 bpm BMI 34.02 Index Results No Known Results Summary Purpose eClinicalWorks Submission
--- OUTSIDE RECORDS SUMMARY | 2017-07-04 09:18 | XMS REPORT ---
Author Author NICOLE PEOPLES Organization eClinicalWorks Address Unknown Phone Unavailable Care Team Providers Care Brush Clearer Surveying Name Role Phone NICOLE PEOPLES CP Unavailable Allergies No Known Allergies Problems Problem Type Condition Code Onset Dates Condition Status Assessment Hyperlipidemia, unspecified E78.5 Active Problem Hyperlipidemia, unspecified E78.5 Active Problem Nicotine dependence, cigarettes, uncomplicated F17.210 Active Assessment Essential hypertension I10 Active Problem Aortic aneurysm without rupture, unspecified portion of aorta I71.9 Active Problem Coronary artery disease without angina pectoris, unspecified vessel or lesion type, unspecified whether [place] or transplanted heart I25.10 Active Problem Phimosis N47.1 Active Problem Coronary artery disease involving [place] coronary artery of [place] heart without angina pectoris I25.10 Active Problem Atherosclerotic heart disease of [place] coronary artery without angina pectoris I25.10 Active Problem Hyperlipidemia, unspecified hyperlipidemia type E78.5 Active Problem Secondary hypertension I15.9 Active Medications No Known Medications Procedures Procedure Coding System Code Date LIPID PANEL CPT-4 09596 Sep 13, 2016 COMPLETE CBC W/AUTO DIFF WBC CPT-4 82337 Sep 13, 2016 COMPREHEN METABOLIC PANEL CPT-4 41348 Sep 13, 2016 VENIPUNCT, ROUTINE* CPT-4 80819 Sep 13, 2016 ASSAY THYROID STIM HORMONE CPT-4 41326 Sep 13, 2016 Results Name Result Date Reference Range Unit Abnormality Flag ROUTINE VENIPUNCTURE Summary Purpose eClinicalWorks Submission
--- OUTSIDE RECORDS SUMMARY | 2017-07-04 09:18 | XMS REPORT ---
Author Author FRANCOISE NUNEZ [facility] eClinicalWorks Address Unknown Phone Unavailable Care Team Providers Care Aerial Survey Technician Name Role Phone FRANCOISE NUNEZ CP Unavailable [...] Instructions Start Date End Date Status Dosage [facility] [place] [address]-00 5 MG Orally 2 times a day December 29, 2014 take 1 tablet Results No Known Results Summary Purpose eClinicalWorks Submission
--- OUTSIDE RECORDS SUMMARY | 2017-07-04 09:19 | XMS REPORT ---
Author Author NICOLE PEOPLES Organization eClinicalWorks Address Unknown Phone Unavailable Care Team Providers Care Leather Goods Sales Representative Name Role Phone NICOLE PEOPLES CP Unavailable Allergies, Adverse Reactions, Alerts Substance Reaction Event Type Penicillin G Sodium Info Not Available Drug Allergy Problems Problem Type Condition Code Onset Dates Condition Status Assessment Pigmented skin lesion of uncertain nature L81.9 Active Problem Hyperlipidemia, unspecified E78.5 Active Problem Nicotine dependence, cigarettes, uncomplicated F17.210 Active Assessment Phimosis N47.1 Active Problem Aortic aneurysm without rupture, unspecified portion of aorta I71.9 Active Problem Coronary artery disease without angina pectoris, unspecified vessel or lesion type, unspecified whether [place] or transplanted heart I25.10 Active Problem Phimosis N47.1 Active Problem Coronary artery disease involving [place] coronary artery of [place] heart without angina pectoris I25.10 Active Problem Atherosclerotic heart disease of [place] coronary artery without angina pectoris I25.10 Active Problem Hyperlipidemia, unspecified hyperlipidemia type E78.5 Active Problem Secondary hypertension I15.9 Active Medications Medication Code System Code Instructions Start Date End Date Status Dosage Atenolol [facility] 53995685706 100 MG Orally Once a day 1 tablet Nexium [facility] [address]-40 20 mg January 13, 2015 1 capsule by Oral route 1 time per day Norvasc [facility] [address]-45 5 MG Orally 2 times a day December 29, 2014 take 1 tablet Gemfibrozil [facility] 16369358157 600 MG Orally Twice a day 1 tablet Hyzaar [facility] 12807974127 100-25 MG Orally Once a day 1 tablet Potassium NDC 0 595mg Orally Once a day 1 tablet IBU NDC 0 800 MG Orally Three times a day April 01, 2015 1 tablet Losartan Potassium-HCTZ [facility] 45976187626 100-25 MG TAKE ONE (1) TABLET BY MOUTH ONCE DAILY. Aspirin [facility] [address]-99 81 mg Jul 22, 2013 chew 1 tablet (81 mg ) by oral route once daily Niacin [facility] [address]-64 500 MG Orally Once a day December 29, 2014 1 Tablet by Oral route 2 times per day Procedures Procedure Coding System Code Date Office Visit, Est Pt., Level 3 CPT-4 18076 Aug 23, 2016 Vital Signs Date/Time: Aug 23, 2016 Cardiac Monitoring Heart Rate 74 bpm Weight 185.2 lbs Height 62 in BMI 33.87 Index Blood Pressure Diastolic 74 mmHg Blood Pressure Systolic 128 mmHg Results No Known Results Summary Purpose eClinicalWorks Submission
[2017-07-04] MEDS ORDERED: NS IV 1000 ML 1,000 ML IV SCH ×2 (09:30→12:58)
[2017-07-04 09:49] LABS: MEAN PLATELET VOLUME 10.4 FL (7.4-10.4); RED BLOOD COUNT 4.94 10^6/uL (4.35-5.85); RED CELL DISTRIBUTION WIDTH 14.2 % (10.0-14.5); WHITE BLOOD COUNT 6.1 10^3/uL (4.3-11.0)
[2017-07-04] MEDS ORDERED: AMLO5TAB2 PO (09:53)
[2017-07-04] MEDS ORDERED: NIAC500T24 PO (09:53)
[2017-07-04] MEDS ORDERED: NF-ESOM40C PO (09:53)
[2017-07-04] MEDS ORDERED: LOSA1TAB15 PO (09:53)
[2017-07-04] MEDS ORDERED: ATEN100T PO (09:53)
[2017-07-04] MEDS ORDERED: METF1000 PO (09:53)
[2017-07-04 09:59] LABS: INR 0.9 (0.8-1.4)
[2017-07-04] MEDS ORDERED: POTA99TA21 PO (10:05)
[2017-07-04] MEDS ORDERED: GEMF600T3 PO (10:05)
[2017-07-04] MEDS ORDERED: ESOM20CA37 PO (10:05)
[2017-07-04] MEDS ORDERED: FLUT16SP22 NS (10:05)
[2017-07-04] MEDS ORDERED: RT-ALBUINH IH (10:05)
[2017-07-04] MEDS ORDERED: METF500T4 PO (10:05)
[2017-07-04] MEDS ORDERED: ASPI-999 PO (10:05)
[2017-07-04] MEDS ORDERED: IBUP-30 PO (10:06)
[2017-07-04 10:08] LABS: ALANINE AMINOTRANSFERASE 36 U/L (0-55); ALBUMIN 4.5 GM/DL (3.2-4.5); ANION GAP 13 MMOL/L (5-14); ASPARTATE AMINO TRANSFERASE 18 U/L (5-34); BILIRUBIN,TOTAL 0.3 MG/DL (0.1-1.0); BLOOD UREA NITROGEN 13 MG/DL (7-18); BUN/CREATININE RATIO 15; CALCIUM 9.2 MG/DL (8.5-10.1); CARBON DIOXIDE 24 MMOL/L (21-32); CHLORIDE 101 MMOL/L (98-107); CHOLESTEROL 266 MG/DL (< 200); CREATININE SERUM 0.89 MG/DL (0.60-1.30); DIRECT LDL 202 MG/DL (1-129); GFR ESTIMATED > 60; GLUCOSE 124 MG/DL (70-105); POTASSIUM 3.6 MMOL/L (3.6-5.0); SODIUM 138 MMOL/L (135-145); TOTAL PROTEIN 7.6 GM/DL (6.4-8.2); TRIGLYCERIDES 261 MG/DL (<150); VLDL CHOLESTEROL 52 MG/DL (5-40)
[2017-07-04] MEDS ORDERED: MIDAZOLAM 5 MG/5 ML (VERSED) VIAL ONE (11:07)
[2017-07-04] MEDS ORDERED: fentaNYL INJECTION 100 MCG/2 ML AMP ONE (11:07)
[2017-07-04] MEDS ORDERED: diphenhydrAMINE 50 MG/ML INJ (BENADRYL) ONE (11:10)
--- NOTE | 2017-07-04 11:28 | Cardiac Procedure Note-CS/ASA ---
Pre-Procedure Note Pre-Op Procedure Note H&P Reviewed The H&P was reviewed, patient examined and no changes noted. Date H&P Reviewed: Jul 04, 2017 Time H&P Reviewed: : Conscious Sedation Pre-Proced Time Reviewed: ASA Class: 3 Airway Mallampati Classification: ([place] appropriate class) I. II. III, IV Lungs Heart ASA score ASA 1: a normal healthy patient ASA 2: a patient with a mild systemic disease (mid diabetes, controlled hypertension, obesity ASA 3: a patient with a severe systemic disease that limits activity (angina , COPD, prior Myocardial infarction) ASA 4: a patient with an incapacitating disease that is a constant threat to life (CHF, renal failure) ASA 5: a moribund patient not expected to survive 24 hrs. (ruptured aneurysm) ASA 6: a declared brain patient whose organs are being harvested. For emergent operations, add the letter E after the classification Grade 2 Sedation Plan: Analgesia, Amnesia, Plan communicated to team members, Discussed options with patient/fam, Discussed risks with patient/fam Note The patient is an appropriate candidate to undergo the planned procedure, sedation, and anesthesia. The patient immediately re-assessed prior to indication. THYU CHU MD FACP FACC CCDS Jul 04, 2017 11:28
[2017-07-04] MEDS ORDERED: HEParin 1000 UNIT/ML (10ML VIAL) FOR BOLUS ONE (12:10)
[2017-07-04] MEDS ORDERED: EPTIFIBATIDE BOLUS 20 ML IV ONE (12:11)
[2017-07-04] MEDS ORDERED: CLOPIDOGREL 300 MG (PLAVIX) TABLET PO ONE ×2 (12:30→13:00)
[2017-07-04] MEDS ORDERED: ASPIRIN 81 MG CHEW (CHILDREN'S ASA) ONE (12:31)
[2017-07-04] MEDS ORDERED: ACETAMINOPHEN 325 MG TABLET/CAPLET (TYLENOL) PO PRN (13:00)
[2017-07-04] MEDS ORDERED: TEMAZEPAM 15 MG (RESTORIL) CAP PO PRN (13:00)
[2017-07-04] MEDS ORDERED: ALBUTEROL IH PRN (13:00)
[2017-07-04] MEDS ORDERED: PATIENT MAY USE OWN MEDS, ALL PO SCH (13:00)
[2017-07-04] MEDS ORDERED: ANTACID SUSP 30 ML UDC (MYLANTA) PO PRN (14:00)
[2017-07-04] MEDS ORDERED: PANTOPRAZOLE 40 MG/10 ML (PROTONIX) VIAL IV ONE (14:00)
[2017-07-04] MEDS: inSUlin (REGULAR) HUMAN 1 UNIT/0.01 ML (CHARGE PER UNIT) SC SCH ×2 (16:00→22:03)
[2017-07-04] MEDS ORDERED: NIACIN 500 MG PO SCH (21:00)
[2017-07-04] MEDS ORDERED: ATENOLOL 100 MG PO SCH (21:00)
[2017-07-04] MEDS ORDERED: GEMFIBROZIL 600 MG (LOPID) TAB PO SCH (21:00)
[2017-07-04] MEDS: amLODIPine 5 MG (NORVASC) TAB PO SCH (22:01)
[2017-07-05 00:13] VITALS: BP 117/84
--- NOTE | 2017-07-05 00:55 | CARDIAC CATHETERIZATION ---
DATE OF SERVICE: 07/04/2017 HISTORY OF PRESENT ILLNESS: The patient is a 47-year-old man with a known history of coronary artery disease and continuing coronary artery disease risk factors. Lately, he has been having symptoms suggestive of angina. On a previous myocardial perfusion imaging study, he is known to have anteroapical ischemia, but had opted not to have heart catheterization. With his new symptoms, he has now wished to proceed with cardiac catheterization. Informed consent was obtained for cardiac catheterization and possible ad hoc coronary intervention. His prior history is that he has had percutaneous coronary intervention by Dr. Ray in 2009 (left circumflex) and in 2010 (left anterior descending). PROCEDURE: He was brought to the cardiac catheterization laboratory in a fasting state. Right groin was prepped and draped in the usual sterile fashion. Lidocaine 1% was used for local anesthesia. Modified Seldinger technique used to advance a 5-Norwegian sheath into the right femoral artery. A 5-Norwegian JL4 catheter used for left coronary angiography. A 5-Norwegian JR4 catheter used for right coronary angiography. A 5-Norwegian pigtail catheter was used for left heart catheterization and left ventricular angiography. PERCUTANEOUS INTERVENTION TO THE LEFT ANTERIOR DESCENDING ARTERY: Following completion of the diagnostic procedure, we carried out percutaneous intervention to the left anterior descending artery where the patient was found to have 80% in-stent restenosis within a previously placed stent. This stent, apparently, was placed by Dr. Ray in 2010 and stated to be at 3.5 x 18 mm stent. The mid left anterior descending artery following the origin of the second diagonal branch is completely occluded and there appeared to be two stents in the occluded portion of the left anterior descending artery. The details of these stents are unknown. We exchanged the sheath over a wire for a 6 Norwegian sheath. We gave 4000 units of intravenous heparin. We gave a double bolus of Integrilin. We used a 6-Norwegian JL4 guide catheter to engage the left coronary artery. We used a ChoICE Whisper wire to cross the lesion in the proximal stent in the left anterior descending artery and we did try to enter into the chronically occluded left anterior descending artery, but we were unable to do so. The artery is completely occluded following the second diagonal branch. The tip of the wire was placed in the second diagonal branch and we carried out balloon angioplasty within the in-stent restenosis with Emerge 3.0 mm x 15 mm stent which was inflated to 16 atmospheres. Subsequent angiography revealed less than 10% stenosis and improvement of flow within the artery distal to the lesion, including the second diagonal branch. The patient tolerated the procedure well. The angioplasty equipment was removed. Mynx was used to achieve hemostasis following sheath removal. He tolerated the procedure well. HEMODYNAMICS: Left ventricular end-diastolic pressure following coronary angiography was 17 mmHg. There was no significant pressure gradient on pullback across the aortic valve. Ascending aortic pressure was 110/80 with a mean of 64 mmHg. LEFT VENTRICULAR ANGIOGRAPHY: Left ventricular angiography was carried out in the right anterior oblique projection. Global left ventricular systolic function appears well preserved and there does not appear to be distinct regional wall motion abnormality in this view. Left ventricular ejection fraction is approximately 55% to 60%, and there does not appear to be significant mitral regurgitation. CORONARY ANGIOGRAPHY: Left main coronary artery does not exhibit significant obstructive disease. Diffuse coronary calcification is seen. Left anterior descending artery has 80% in-stent restenosis in the mid vessel stent to which successful balloon angioplasty was carried out for the reduction of stenosis to less than 10% residual. The first diagonal branch of the left anterior descending artery is of a small caliber and is severely diseased. The second diagonal branch of the left anterior descending artery has mild plaques. The left anterior descending artery was occluded following the origin of the second diagonal branch. In the occluded portion of the left anterior descending artery, there appeared to be two stents. The left circumflex artery is small and nondominant. The first obtuse marginal branch of the left circumflex artery has a patent stent with 50% in-stent restenosis. The left circumflex artery beyond the first obtuse marginal branch is of a very small caliber and has diffuse severe disease and is not amenable to intervention on account of small vessel caliber. The right coronary artery is large and dominant and has mild plaques and supplies faint collaterals to the distal left anterior descending artery. CONCLUSIONS: 1. Coronary artery disease as described in detail above. The left anterior descending artery had 80% in-stent restenosis in the mid vessel stent to which successful balloon angioplasty was carried out with the 3.0 mm x 15 mm balloon with reduction of stenosis to less than 10%. The distal left anterior descending artery, past the second diagonal branch, is chronically occluded and appears to have two relatively long stents. Attempted intervention to this portion of the vessel was not successful. The first obtuse marginal branch of the circumflex artery has a patent stent with 50% in-stent restenosis. The left circumflex artery is of a very small caliber beyond the first obtuse marginal branch and is severely diseased, but not amenable to intervention because of small vessel caliber. The right coronary artery is large and dominant and has mild plaques and supplies faint collaterals to the distal left anterior descending. 2. Well preserved global left ventricular systolic function with an ejection fraction of 55% to 60%. 3. Mild elevation of left ventricular end-diastolic pressure. 4. No significant mitral regurgitation. DISCUSSION AND RECOMMENDATIONS: He is being hospitalized after today's intervention. He does have distal left anterior descending and distal left circumflex artery disease that is not amenable to intervention. Risk factor modification is advised. Therapy will also be adjusted to his symptoms. Job ID: [id number] DocumentID: [id number] Dictated Date: 07/04/2017 12:52:58 Dining Service Inspector Date: 07/04/2017 15:10:11 Dictated By: THUY CHU MD, MA, FACP, FACC,
[2017-07-05 04:04] VITALS: BP 119/81
[2017-07-05 06:07] LABS: MEAN PLATELET VOLUME 10.7 FL (7.4-10.4); RED BLOOD COUNT 4.78 10^6/uL (4.35-5.85); RED CELL DISTRIBUTION WIDTH 14.3 % (10.0-14.5); WHITE BLOOD COUNT 9.5 10^3/uL (4.3-11.0)
[2017-07-05 06:23] LABS: ANION GAP 9 MMOL/L (5-14); BLOOD UREA NITROGEN 12 MG/DL (7-18); BUN/CREATININE RATIO 15; CALCIUM 9.2 MG/DL (8.5-10.1); CARBON DIOXIDE 26 MMOL/L (21-32); CHLORIDE 103 MMOL/L (98-107); CREATININE SERUM 0.82 MG/DL (0.60-1.30); GFR ESTIMATED > 60; GLUCOSE 132 MG/DL (70-105); SODIUM 138 MMOL/L (135-145)
[2017-07-05] MEDS: inSUlin (REGULAR) HUMAN 1 UNIT/0.01 ML (CHARGE PER UNIT) SC SCH (06:26)
[2017-07-05 08:00] VITALS: BP 127/78
[2017-07-05] MEDS: amLODIPine 5 MG (NORVASC) TAB PO SCH (08:54)
[2017-07-05] MEDS ORDERED: FLUTICASONE NASAL SPRAY (FLONASE) 16 GM BTL NS SCH (09:00)
[2017-07-05] MEDS ORDERED: ASPIRIN 81 MG CHEW (CHILDREN'S ASA) PO SCH (09:00)
[2017-07-05] MEDS ORDERED: CLOPIDOGREL 75 MG (PLAVIX) TABLET PO SCH (09:00)
[2017-07-05] MEDS ORDERED: ASPIRIN E.C. 81 MG (ECOTRIN) TAB PO SCH (09:00)
[2017-07-05] MEDS ORDERED: HYDROCHLOROTHIAZIDE PO SCH (09:00)
[2017-07-05] MEDS ORDERED: LOSARTAN PO SCH (09:00)
[2017-07-05] MEDS ORDERED: ESOMEPRAZOLE 20 MG PO SCH (09:00)
--- NOTE | 2017-07-05 09:46 | Progress Note-Cardiology ---
Cardiology SOAP Progress Note Subjective: Denies cp or palp or syncope or shortness of breath or groin discomfort Objective: I&O/Vital Signs Vital Sign - Last 12Hours 07/05/17 07/05/17 07/05/17 07/05/17 00:13 01:00 04:04 08:00 Temp 97.8 97.0 98.1 Pulse 64 66 70 76 Resp 20 20 20 B/P (MAP) 117/84 119/81 127/78 Pulse Ox 95 93 93 O2 Delivery Room Air Room Air Room Air 07/05/17 08:30 O2 Delivery Room Air Weight (Pounds): 180 Weight (Ounces): 0.0 Weight (Calculated Kilograms): 81.216392 Groin site without hematoma: Yes Bruising: mild bruising Constitutional: AAO x 3, well-developed, well-nourished Respiratory: No accessory muscle use, lungs clear to percussion, lungs clear to auscultation Cardiovascular: regular rate-rhythm, S1 and S2, systolic murmur (faint ONELIA at cardiac base) Gastrointestional: No tender, soft, No guarding, No rebound, audible bowel sounds Extremities: No clubbing, No cyanosis, No significant edema Neurologic/Psychiatric: oriented x 3, grossly intact, power is 5/5 both on sides Skin: No rash on exposed areas, No ulcerations on exposed areas Results/Procedures: Labs Laboratory Tests 07/04/17 14:41: Glucometer 103 07/04/17 21:53: Glucometer 122H 07/05/17 05:43: White Blood Count 9.5, Red Blood Count 4.78, Hemoglobin 13.8, Hematocrit 40, Mean Corpuscular Volume 84, Mean Corpuscular Hemoglobin 29, Mean Corpuscular Hemoglobin Concent 34, Red Cell Distribution Width 14.3, Platelet Count 266, Mean Platelet Volume 10.7H, Sodium Level 138, Potassium Level 4.0, Chloride Level 103, Carbon Dioxide Level 26, Anion Gap 9, Blood Urea Nitrogen 12, Creatinine 0.82, Estimat Glomerular Filtration Rate > 60, BUN/Creatinine Ratio 15, Glucose Level 132H, Calcium Level 9.2 Laboratory Tests 07/04/17 09:40 07/05/17 05:43 A/P: Assessment: CAD with a h/o multiple PCIs in the past, the details of which are not known. Cardiac cath of 07/04/17 showed that the left anterior descending artery had 80% in-stent restenosis in the mid vessel stent to which successful balloon angioplasty was carried out with the 3.0 mm x 15 mm balloon with reduction of stenosis to less than 10%. The distal left anterior descending artery, past the second diagonal branch, is chronically occluded and appears to have two relatively long stents. Attempted intervention to this portion of the vessel was not successful. The first obtuse marginal branch of the circumflex artery has a patent stent with 50% in-stent restenosis. The left circumflex artery is of a very small caliber beyond the first obtuse marginal branch and is severely diseased, but not amenable to intervention because of small vessel caliber. The right coronary artery is large and dominant and has mild plaques and supplies faint collaterals to the distal left anterior descending. Well preserved global left ventricular systolic function with an ejection fraction of 55% to 60%. Mild elevation of left ventricular end-diastolic pressure. No significant mitral regurgitation. Echocardiogram of December 2012 showed dilated aortic root. LVEF 55%. Septal hypertrophy with hypokinesis. Mild MR and TR HLP. Reports severe hepatic compications on statins and does not wish to go on those again GERD Tobaccoism - cessation advised Mild carotid art disease on carotid u/s of Sep 2016 DM II, followed treated by his pcp Plan: * We discussed in detail the findings of card cath, interventions undertaken, and further management plan * Card risk factor modification is extremely important and we discussed this in detail * We advised immediate and complete tobacco cessation * We advised efforts at wgt loss * We discussed the rationale and potential side effects of meds * We advised med compliance and clinical f/u and for him to keep us aware of any change in clinical status THUY CHU MD FACP [facility] Jul 05, 2017 09:46
[2017-07-05] MEDS ORDERED: CLOP75TA69 PO (09:56)
--- NOTE | 2017-07-05 09:57 | Discharge Inst-Post CATH ---
Discharge Inst-CATH Post Cardiac Cath D/C Inst Follow Up/Plan F/u with Dr Cadena in 1-2 weeks CARDIAC CATH DISCHARGE INSTRUCTIONS *Hold Metformin for 48 hours post heart cath. ACTIVITY * Go Home directly and rest. * Limit activity of the leg (or wrist if it was used) for 7 days including aerobics, swimming, jogging, bicycling, etc. * Restrict stair-climbing for 7 days if possible, if not, climb up with your non -cath leg, then bring together on the same step. * Avoid lifting, pushing, pulling or excessive movement of the affected extremity for 7 days. * Customary sexual activity may be resumed after 2 days-use caution not to use a position that strains or causes pain to the affected extremity. * No driving for 24 hours. * NO SMOKING. * Avoid straining for bowel movements for 7 days. * Gentle walking on level ground is allowed. * Returning to work will depend on the type of procedure and the results. Your doctor will discuss this with you. CALL YOUR DOCTOR FOR ANY OF THE FOLLOWING: *If bleeding from the puncture site occurs- Apply gentle pressure to site with clean cloth and call your doctor or EMS. * If a knot or lump forms under the skin, increases in size, or causes pain. * If bruising appears to be worsening or moving further down your leg instead of disappearing. * Temperature above 101 F. CARE OF YOUR GROIN INCISION; * Bruising or purple discoloration of the skin near the puncture site is common. * You may shower only, no bathtub bathing for 5 days. Be careful to avoid slipping as your leg may feel stiff. * If a closure device was used on your femoral artery, please see the attached guide regarding care of the device and your leg. * REMOVE the dressing from your groin the next day after your procedure in the shower. CARE OF YOUR WRIST INCISION; * Bruising or purple discoloration of the skin near the puncture site is common. * You may shower. * DO NOT submerge wrist. * Remove dressing in 24 hours. THUY ACDENA MD [facility] Jul 05, 2017 09:57
--- NOTE | 2017-07-05 09:58 | Discharge Inst-Cardiology ---
Discharge Inst-Cardiac Discharge Medications New Medications: Clopidogrel Bisulfate (Plavix) 75 Mg Tablet 75 MG PO DAILY, #90 TAB 3 Refills Continued Medications: Albuterol Sulfate (Proair Hfa) 1 Puff Puff 2 PUFF IH QID PRN for SHORTNESS OF BREATH, PUFF 1 PUFF = 90 MCG Amlodipine Besylate (Amlodipine Besylate) 5 Mg Tablet 5 MG PO BID, TAB Aspirin (Aspirin) 81 Mg Tab.chew 81 MG PO DAILY, TAB Atenolol (Atenolol) 100 Mg Tablet 100 MG PO HS, TAB Esomeprazole Magnesium (Esomeprazole Magnesium) 20 Mg Capsule.dr 40 MG PO DAILY, CAP TAKES 2 (20MG) CAPSULES Fluticasone Propionate (Fluticasone Propionate) 16 Gm [place].susp 1 SPRAY NS DAILY, SPRAY Gemfibrozil (Gemfibrozil) 600 Mg Tablet 600 MG PO HS, TAB Losartan/Hydrochlorothiazide (Hyzaar 100-25 Tablet) 1 Each Tablet 1 TAB PO DAILY, TAB Metformin HCl (Metformin HCl) 500 Mg Tablet 1000 MG PO BID, TAB TAKES 2 (500MG) TABLETS Niacinamide (Niacin) 500 Mg Tablet 500 MG PO HS, TAB Potassium Gluconate (Potassium) 99 Mg Tablet 99 MG PO DAILY, TAB Discontinued Medications: Ibuprofen (Advil) 200 Mg Tablet 800 MG PO TID PRN for PAIN-MILD, TAB TAKES 4 (200MG) TABLETS Patient Instructions Patient Instructions: Do NOT take METFORMIN until tomorrow evening No smoking Orders-Post D/C & Referrals Pneu Vac Indicated: Yes THUY CHU MD FACP [facility] Jul 05, 2017 09:58
[2017-07-05 10:56] VITALS: BP 127/78
== END 2017-07-05 10:52 ==
LOC: CATH 09:10 → ICU 13:05 → CATH 13:05
PROVIDERS: ATTEND Internal Medicine Cardiovascular Disease
DX: I25.10 Atherosclerotic heart disease of native coronary artery without angina pectoris (principal); T82.855A Stenosis of coronary artery stent, initial encounter; I25.82 Chronic total occlusion of coronary artery; I25.84 Coronary atherosclerosis due to calcified coronary lesion; E78.5 Hyperlipidemia, unspecified; K21.9 Gastro-esophageal reflux disease without esophagitis; Z72.0 Tobacco use; Z79.84 Long term (current) use of oral hypoglycemic drugs; Z79.899 Other long term (current) drug therapy
CPT/HCPCS: 36415; 80048; 80053; 80061; 82962; 85027; 85610; 85730; 87081; 92920; 93005; 93458